=== PATIENT | female | born 2005 | race Caucasian/White ===

== ENCOUNTER 2025-08-30 22:27 | Emergency (ER) | payer OTHER, BC, SELFPAY ==
[2025-08-30 22:28] VITALS: BP 120/81
[2025-08-30 22:30] VITALS: BP 120/81; BMI 30.1
[2025-08-30 22:35] LABS: Glucose - Point of Care 106 mg/dl (70-99)
[2025-08-30 22:49] LABS: Hematocrit 39.6 % (37.0-47.0); Hemoglobin 13.8 g/dL (12.0-16.0); Mean Corp Hgb Conc. 34.8 g/dL (33.0-37.0); Mean Corpuscular Volume 85.3 fL (81.0-99.0); Nucleated Red Blood Cells % 0 %; Platelet Count 274 10^3/uL (130-400); Red Cell Dist. Width 11.8 % (11.5-14.5)
[2025-08-30 23:00] VITALS: BP 113/97
[2025-08-30 23:02] LABS: HCG, Serum Qualitative Screen Negative
[2025-08-30 23:10] LABS: ALT (SGPT) 22 U/L (0-35); AST (SGOT) 26 U/L (14-36); Albumin 4.6 g/dl (3.5-5.0); Alkaline Phosphatase 85 U/L (38-126); Blood Urea Nitrogen 8 mg/dl (7-17); Calcium 9.3 mg/dl (8.4-10.2); Carbon Dioxide 22 mmol/L (22-30); Chloride 105 mmol/L (98-107); Estimated Creatinine Clearance > 125 ml/min; Glucose 102 mg/dl (70-99); Potassium 4.2 mmol/L (3.5-5.1); Sodium 136 mmol/L (135-145); Total Protein 8.0 g/dl (6.3-8.2); eGFR > 60.00
--- NOTE | 2025-08-30 23:24 | ED.GENMED ---
History of Present Illness
General
Chief Complaint: Seizure
Source: patient
Exam Limitations: none
Time Seen by Provider: 08/30/25 23:17
History of Present Illness
History of Present Illness:
See MDM
Past History
Past History
ED Past Medical History: GERD and Seizures
ED Past Surgical History: None
Social History
Tobacco: Non-smoker
Alcohol: None
Phy Exam
Physical Exam
Physical Exam:
See MDM
Course
Orders/Labs/Results
Orders:
Orders
08/30/25 22:41
Test Result ONCE
08/30/25 22:42
Complete Blood Count/With Diff Urgent
Comprehensive Metabolic Panel Urgent
HCG, Serum Qualitative Screen Urgent
08/30/25 23:24
Levetiracetam Injectable [Keppra] 2,000 mg IV NOW STA
Lorazepam [Ativan] 1 mg IV NOW STA
Abnormal Lab Results
08/30/25 08/30/25
22:33 22:42
Glucose 102 H mg/dl
(70-99)
POC Glucose 106 H mg/dl
(70-99)
08/30/25 22:42
08/30/25 22:42
Vital Signs
Initial and Last Documented VS:
Initial Vital Signs
BP
120/81
08/30/25 22:28
Last Documented Vital Signs
Temp Pulse Resp BP Pulse Ox
100.0 F 79 23 113/97 96
08/30/25 22:30 08/30/25 23:45 08/30/25 23:45 08/30/25 23:00 08/30/25 23:45
MDM/Problems Addressed
Differential Diagnosis Includes:
Note:
CHIEF COMPLAINT(S)
Seizures
HISTORY OF PRESENT ILLNESS
The patient is a 20-year-old female with a known history of both epileptic and non-epileptic seizures who presented to the emergency department after experiencing seizures today. The first two seizures were brief, while the third seizure lasted
approximately 15 minutes. The patients seizures occur frequently, about once a week, and were last witnessed at a family friends house. Prior to today, her last seizure occurred at the friends home last night.
The patient is currently taking topiramate 25 mg twice daily and was supposed to start levetiracetam (Keppra) soon. The patient received midazolam (Versed) in the ambulance prior to arrival. Post-seizure, the patient experienced fogginess.
PHYSICAL EXAM
General: Alert, no acute distress.
Skin: Warm, dry.
Head: Normocephalic, atraumatic
Neck: Appears supple, trachea midline.
Eyes, Ears, Nose, Mouth, and Throat: Moist mucous membranes
Cardiovascular: No signs of cyanosis
Respiratory: Respirations are non-labored.
Abdomen: Non-distended
Musculoskeletal: No deformities
Neurological: No focal neurological deficit observed. appears mildly postictal
Psychiatric: Cooperative, appropriate mood and affect.
MEDICATION RECONCILIATION
- Midazolam (Versed) administered by emergency medical services en route.
- Plan to administer an IV dose of levetiracetam.
- Consideration for prescribing lorazepam to manage ongoing seizure activity, if necessary.
MEDICAL DECISION MAKING
-Complexity of Data Reviewed: Chronic conditions affecting care: History of epileptic and non-epileptic seizures
-Data:
Category 1:
- Plan to administer IV levetiracetam.
- Review of patients current medication regimen (topiramate).
Category 3:
- No discussion of management with other healthcare providers at this time.
-Risk:
Prescription medication was prescribed: IV levetiracetam, and lorazepam considered to manage seizure activity.
DIFFERENTIAL DIAGNOSIS
The Differential Diagnosis includes, in no particular order and is not limited to:
- Epileptic seizures
- Non-epileptic psychogenic seizures
- Substance-induced seizures
- Metabolic disturbances (hypoglycemia, electrolyte imbalances)
- Infection-related seizures (e.g. meningitis, encephalitis)
- Intracranial mass or lesion
- Head trauma-related seizure
- Alcohol withdrawal seizure
- Sleep deprivation or stress-induced seizure
- Medication non-compliance or withdrawal
SUMMARY OF ENCOUNTER
The patient, a 20-year-old female with a history of epileptic and non-epileptic seizures, presented after experiencing three seizures today, one of which lasted approximately 15 minutes. She is currently on topiramate and was supposed to start
Keppra. She received midazolam in the ambulance. In the emergency department, the primary strategy was to administer an IV dose of levetiracetam to jumpstart treatment while avoiding unnecessary neurologist intervention, maintaining her current
management plan, and considering discharge once she was more alert.
PATIENT EDUCATION AND COUNSELING
The patient was educated on the need to find the right medication for long-term seizure control. An explanation was provided regarding seizure thresholds and medication effectiveness in raising this threshold to minimize seizure occurrences.
FOLLOW-UP INSTRUCTIONS
Further follow-up with the patients primary neurologist to evaluate seizure management and adjustment of medication regimen as needed.
ASSESSMENT
The patients seizure episodes today are attributed to her underlying seizure disorder, which appears to require adjustment with the addition of levetiracetam to her current treatment plan.
DIAGNOSIS
- Epileptic seizures, ICD-10 G40.909
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
SUMMARY OF ENCOUNTER
The patient presented to the emergency department with breakthrough seizures and has a documented history of epilepsy. She is currently on Topiramate (25 mg BID) and her neurologist plans to start her on Levetiracetam (500 mg BID). She was
administered a loading dose of Levetiracetam and Ativan (Lorazepam) to raise her seizure threshold. After prolonged observation, the patient appeared much better and was mildly postictal. She was offered admission for further observation, but she
felt comfortable going home and has arranged for transportation as she is not permitted to drive due to her epilepsy. A follow-up with her neurologist to discuss the breakthrough seizures and further workup was advised.
DISPOSITION
Discharge
EMERGENCY TREATMENTS ADMINISTERED
Loading dose of Levetiracetam administered in the emergency department; Ativan (Lorazepam) was also given to raise the seizure threshold.
FOLLOW-UP INSTRUCTIONS
The patient is advised to call her neurologist tomorrow to discuss the breakthrough seizures and potential further workup.
MEDICATION RECONCILIATION
- Topiramate 25 mg BID
- Levetiracetam 500 mg BID (plan to start per neurologist)
- Lorazepam administered in the emergency department
- Loading dose of Levetiracetam administered in the emergency department
MEDICAL DECISION MAKING
-Complexity of Data Reviewed: Chronic conditions affecting care include epilepsy. Differential Diagnosis includes epileptic seizures, non-epileptic psychogenic seizures, and other possible causes of seizures.
-Data:
Category 1: Administered a loading dose of Levetiracetam and a dose of Lorazepam.
-Risk: Prescription medication was provided: Levetiracetam and Lorazepam to manage seizure activity. Consideration for admission was made, but the patient opted for discharge.
DIAGNOSIS
- Epileptic seizures, ICD-10 G40.909
*Pulse Oximetry
SaO2: 99
Oxygen Mode of Delivery: Room air
Patient hypoxic: no
*Critical Care Note
Total Time (30-74mins, 75-104mins- exclusive of procedures): Not Applicable
ED Attending Note
-
Portions of this chart may have been created with voice recognition software.� Occasional wrong word or��sound alike� substitutions may have occurred due to the inherent limitations of voice recognition software.
Discharge Plan
Departure
Patient Disposition: Home (Routine Discharge)
Date of Disposition: 08/31/25
Time of Disposition: 00:58
Patient with high blood pressure during this ER visit?: No
Discharge Problem:
Breakthrough seizure
Instructions: Seizures, Adult (DC)
Prescriptions:
New
levetiracetam [Keppra] 500 mg tablet
500 mg PO BID Qty: 60 0RF
No Action
topiramate 25 mg Tablet
25 mg PO BID
pantoprazole [Protonix] 20 mg Tablet,Delayed Release (Dr/Ec)
20 mg PO DAILY
Referrals:
UNKNOWN - PT DOES,NOT KNOW [Family Provider]
Activity Restrictions/Additional Instructions:
Please return for any worsening symptoms.
You may return at any time if you have further concerns.
Please follow up with your doctor at the first available appointment, preferably this week.
Please discuss your breakthrough seizure with your neurologist.
Thank you for choosing [facility].
Interventions
Interventions:
*Risk Screen - Suicide Last Done: 08/30/25 22:30
*General Assessment Last Done: 08/30/25 22:30
*Neglect/Abuse Screening Last Done: 08/30/25 22:30
*ED Influenza Vaccine History Last Done: 08/30/25 22:30
[facility] Fall Risk Assessment Tool Last Done: 08/30/25 22:56
ED- Cardiac Assessment Last Done: 08/30/25 22:56
ED- Neurological Assessment Last Done: 08/30/25 22:56
ED- Pulmonary Assessment Last Done: 08/30/25 22:56
Discharge Date and Time
Print Language: INDONESIAN
[2025-08-30] MEDS: KEPPRA 2000 MG IV (23:34)
[2025-08-30] MEDS: ATIVAN 1 MG IV (23:34)
--- NOTE | 2025-08-30 23:55 | EDRN ---
Patient is resting, converses with staff but still groggy, family friend at bedside, vss.
[2025-08-31] VITALS: BP 142/67
[2025-08-31 01:00] VITALS: BP 120/69
--- NOTE | 2025-08-31 01:33 | EDRN ---
Patient left with a family friend, still slightly drowsy, offered for her to stay and sleep longer, however patient ready to go home. Spoke with Dr. Finch who said patient is ok to be discharged home.
== END 2025-08-31 01:37 | disposition home or self-care (01) ==
LOC: EMR 22:27
PROVIDERS: EMERGENCY PHYSICIAN Student in an Organized Health Care Education/Training Program
DX: G40.909 Epilepsy, unspecified, not intractable, without status epilepticus (principal); K21.9 Gastro-esophageal reflux disease without esophagitis
CPT/HCPCS: 99284; 96374; 96375; 80053; 82962; 84703; 85025